=== PATIENT | male | born 1930 | race Caucasian/White ===

== ENCOUNTER → 2017-08-27 | Outpatient (CLI) | payer MEDICARE | LOC: ROC 09:32 | PROVIDERS: ATTEND Radiology Radiation Oncology | DX: C78.89 Secondary malignant neoplasm of other digestive organs (principal); I10 Essential (primary) hypertension; K11.8 Other diseases of salivary glands; Z85.820 Personal history of malignant melanoma of skin | CPT/HCPCS: G0463 ==

== ENCOUNTER 2017-09-16 06:13 | Day surgery (SDC) | payer MEDICARE ==
[~2017-09-16] VITALS: Ht 185.4 cm; Wt 102.4 kg
[2017-09-16] MEDS ORDERED: SODIUM CHLORIDE 0.9% 1,000 ML IV SCH (06:46)
[2017-09-16 07:17] VITALS: BP 101/79
[2017-09-16] MEDS ORDERED: MIDAZOLAM 1 MG/ML, 2ML ONE (07:20)
[2017-09-16] MEDS ORDERED: FLUMAZENIL 0.1 MG/1 ML, 5ML ONE (07:20)
[2017-09-16] MEDS ORDERED: NALOXONE 1 MG/ML, 2ML ONE (07:20)
[2017-09-16] MEDS ORDERED: FENTANYL PF 100 MCG/2ML ONE (07:20)
[2017-09-16 07:24] LABS: INTERNATIONAL NORMALIZED RATIO 1.15 (0.93-1.1); PROTHROMBIN TIME 11.9 Seconds (9.6-11.5)
[2017-09-16] MEDS ORDERED: HYDR12.53 PO (07:25)
[2017-09-16] MEDS ORDERED: CLON0.1T PO (07:25)
[2017-09-16] MEDS ORDERED: ALIS300T PO (07:25)
== END 2017-09-16 11:20 | disposition home or self-care (01) ==
LOC: OUT 06:13
PROVIDERS: ATTEND Radiology Radiation Oncology
DX: R16.0 Hepatomegaly, not elsewhere classified (principal); Z85.820 Personal history of malignant melanoma of skin; I10 Essential (primary) hypertension
CPT/HCPCS: 36415; 47000; 76942; 85610; 88307; 88333; 93005; 99156; 99157; J2250; J3010; J7030; J2310